=== PATIENT | female | born 1960 | race Caucasian/White ===

== ENCOUNTER 2016-12-19 16:41 | Emergency (ER) | payer OTHER ==
[2016-12-19 16:52] VITALS: BP 138/85; PULSE 76; RESP 16; TEMP 98.6; O2SAT 94
--- NOTE | 2016-12-19 17:23 | UCPHY ---
H & P Time Seen by Provider: 12/19/16 17:05 Patient Type: Established HPI/ROS: This patient complains of right ear pressure and vertigo. She describes a dull ache in the right ear she describes associated with slight diminished hearing like under water. She has had some cold symptoms verses seasonal allergies over the past few weeks with intermittent bifrontal headache associated with this and mild coryza. Her headache peak intensity is mild and tense resolved with [id number] analgesics. It feels similar to prior headaches. Currently she has no specific headache. Her ear pain is also minimal. She is more bothered by the vertigo which she describes as worse with head movement. She noticed while jogging earlier today. She has mild nausea associated with vertigo that resolves as the vertigo resolved. She also thinks that her dizziness diminishes after drinking red wine. ROS: No fevers. No recent head trauma. HEENT: No specific sinus pain. No drainage from her ear. Neuro: No focal numbness tingling weakness. No vision changes. Pulmonary: No cough. 10 point ROS is otherwise negative. Past Medical/Surgical History: Exercise-induced asthma. Postmenopausal on hormone replacement Smoking Status: Never smoked Physical Exam: Physical exam: Vital signs are normal General: Patient is in no acute distress. HEENT: Is no external evidence of trauma on exam. Nose atraumatic. Ears: Clear bilaterally with no hemotympanum. Right ear exam is notable for appears to be a mild effusion Oropharynx: No dental trauma or malocclusion. No intraoral lacerations. Eyes: Pupils are equal and reactive to light. Extraocular motions are intact. Optic fundi: Clear with no papilledema or hemorrhage. Neck: The patient has no midline neck tenderness and retains a full range of motion without increase in pain. Lungs: Clear to auscultation bilaterally Cardiac: Regular rate and rhythm no murmur gallop or rub. Chest: Nontender. Abdomen: Soft nontender no organomegaly Back: Nontender Extremities: Atraumatic Neuro: GCS of 15. Cranial nerves II through XII intact. Cerebellar exam is normal as judged by symmetric rapid hand movements bilaterally. No pronator drift. No sensory or motor deficits are appreciated. She does have onset of vertigo with head movement. Initial differential diagnosis: Peripheral vertigo-Menier's, serous otitis, anxiety, doubt intracranial pathology Constitutional: Initial Vital Signs Temperature (C) 37 C 12/19/16 16:43 Heart Rate 76 12/19/16 16:43 Respiratory Rate 16 12/19/16 16:43 Blood Pressure 138/85 H 12/19/16 16:43 O2 Sat (%) 94 12/19/16 16:43 O2 Delivery Mode Room Air Allergies/Adverse Reactions: No Known Allergies Allergy (Verified 12/19/16 16:52) Home Medications: Medication Instructions Recorded [place] 12/07/14 Albuterol 12/19/16 Flunisolide Nasal [Nasarel Nasal 2 sprays NS DAILY #1 mdi 12/19/16 [place]] Meclizine HCl [Meclizine HCl 25 mg 25 mg PO TID PRN #20 tab 12/19/16 (RX,OTC)] Ondansetron Odt [Zofran Odt] 4 - 8 mg PO Q4PRN PRN #4 tab 12/19/16 Medical Decision Making ED Course/Re-evaluation: I counseled the patient regarding benign positional vertigo and serous otitis. Clinically she does not have findings that would suggest a central vertigo. She declined medications while here stating she is comfortable at the moment. She will follow up with ENT if she has any ongoing symptoms are not responding to treatment plan over the next 3-5 days. Departure - Departure Disposition: Home, Routine, Self-Care Clinical Impression: Benign positional vertigo Qualifiers: Laterality: unspecified laterality Qualified Code(s): H81.10 - Benign paroxysmal vertigo, unspecified ear Serous otitis media Qualifiers: Laterality: right Chronicity: acute Recurrence: not specified as recurrent Qualified Code(s): H65.01 - Acute serous otitis media, right ear Condition: Good Instructions: Benign Paroxysmal Positional Vertigo (ED) Additional Instructions: Diagnoses: 1. Benign positional vertigo 2. Serous otitis Plan: Humidifier Flonase steroid nasal spray Ibuprofen or similar Meclizine if needed for dizziness Zofran for nausea if needed Her symptoms should improve over the next 3-7 days. If her symptoms are not resolving with treatment plan, call Dr. Yu-ENT specialist arrange follow- up appointment for further evaluation. Go to the emergency department for any significant worsening despite the treatment plan Referrals: Noelle Cagle MD [Primary Care Provider] - As per Instructions John Yu MD [Medical Doctor] - As per Instructions Prescriptions: Flunisolide Nasal [Nasarel Nasal [place]] 2 sprays NS DAILY #1 mdi Meclizine HCl [Meclizine HCl 25 mg (RX,OTC)] 25 mg PO TID PRN #20 tab PRN Reason: vertigo Ondansetron Odt [Zofran Odt] 4 - 8 mg PO Q4PRN PRN #4 tab PRN Reason: Vomiting - PQRS PQRS Measurement: NA
== END 2016-12-19 17:41 | disposition home or self-care (01) ==
LOC: CED 16:41
DX: H81.11 Benign paroxysmal vertigo, right ear (principal); H65.01 Acute serous otitis media, right ear
CPT/HCPCS: G0463-PO

== ENCOUNTER → 2017-04-06 | Outpatient (CLI) | payer OTHER | LOC: CIMAGING 07:55 | PROVIDERS: ATTEND Obstetrics & Gynecology | DX: Z12.31 Encounter for screening mammogram for malignant neoplasm of breast (principal) | CPT/HCPCS: G0202 ==

== ENCOUNTER → 2018-05-10 | Outpatient (CLI) | payer OTHER | LOC: CIMAGING 07:41 | PROVIDERS: ATTEND Obstetrics & Gynecology | DX: Z12.31 Encounter for screening mammogram for malignant neoplasm of breast (principal) ==